=== PATIENT | male | born 1955 | race African-American/Black ===

== ENCOUNTER 2016-10-26 14:40 | Emergency (ER) | payer OTHER ==
--- NOTE | ~2016-10-26 | CR72 ---
[facility] A Service of [facility] [place] & [facility] RADIOLOGY TEXT RESULTS PATIENT: JESSICA YOUSSEF LOCATION: [facility] : 59 UNIT #: [id number] AGE: [address]: David Ramirez MD SEX: M ORDER DR: [id number] [facility] [address] [place], [place] [address] [id number] MR#: [id number] #: [id number] NAME: JESSICA YOUSSEF : 1955 SEX: M STUDY DATE/TIME: 10/26/2016 16:17 UNIT: [facility] ROOM: STUDY DESCRIPTION: CR Chest Single View Portable Attending Physician: David Ramirez M.D. Ordering Physician: David Ramirez M.D. Primary Care Physician: Patrick Lopez M.D. MEDICAL IMAGING REPORT This report is preliminary unless electronic signature is present EXAM Portable chest 1 view COMPARISON STUDIES None 10/26/2016 HISTORY Weakness and short of air today. FINDINGS There is pulmonary hyperexpansion and mild cardiomegaly but otherwise no acute disease. There is no consolidation or effusion or pneumothorax. No acute bony abnormality. Dictated by... Ian Nunez M.D. THIS IS AN ELECTRONICALLY VERIFIED REPORT Ian Nunez M.D. at 10/27/2016 4:10 PM REGGIE/craig TD: 10/26/2016 18:52 JOB #: [id number] MEDICAL IMAGING REPORT Page 1 of 1 COPY
--- NOTE | ~2016-10-26 | EKG ---
PATIENT: JESSICA YOUSSEF UNIT #: [id number] Ventricular Rate: 76 BPM Atrial Rate: 76 BPM P-R Interval: 130 ms QRS Duration: 80 ms Q-T Interval: 406 ms QTC Calculation(Bezet): 456 ms P Baltic: 58 degrees Calculated R Baltic: -25 degrees Calculated T Baltic: 40 degrees Diagnosis Line: Normal sinus rhythm Diagnosis Line: Normal ECG Diagnosis Line: No previous ECGs available Diagnosis Line: Confirmed by DEVIN PATTERSON MD ([id number]) on Diagnosis Line: 10/27/2016 9:04:14 AM INTERPRETING MD: LEONARDO JAUREGUI
[2016-10-26 16:39] LABS: BASOPHIL# 0.1 X10e3 (0-0.3); BASOPHIL% 1.3 % (0-2.5); EOSINOPHIL% 0.6 % (0.0-7.0); HEMATOCRIT 33.9 % (38.0-50.0); LYMPHOCYTE# 1.7 X10e3 (1.0-3.5); LYMPHOCYTE% 33.2 % (17.0-45.0); MEAN CELL VOLUME 93.6 FL (83-96); MEAN CORPUSCULAR HEMOGLOBIN 30.5 PG (28-34); MEAN CORPUSCULAR HGB CONC 32.6 g/dL (30-36); MEAN PLATELET VOLUME 6.9 FL (6.5-11.5); MONOCYTE# 0.4 X10e3 (0-1.0); MONOCYTE% 7.7 % (3.0-12.0); NEUTROPHIL# 2.9 X10e3 (1.5-7.1); NEUTROPHIL% 57.2 % (40-75); PLATELET COUNT 336 X10e3 (140-420); RED BLOOD COUNT 3.62 X10e (3.90-5.60); RED CELL DISTRIBUTION WIDTH 15.9 % (11.0-15.5); WHITE BLOOD COUNT 5.1 X10e3 (4.0-10.5)
[2016-10-26 16:43] LABS: DIFF IND NO
[2016-10-26 17:43] LABS: ALBUMIN SERUM 3.3 g/dL (3.5-5.0); BILIRUBIN, DIRECT 0.1 mg/dL (0.0-0.2); BILIRUBIN,INDIRECT 0.4 mg/dL (0.0-0.9); BILIRUBIN,TOTAL 0.5 mg/dL (0.2-2.0); BUN/CREATININE RATIO 12.72; CALCIUM SERUM 8.5 mg/dL (8.4-10.2); CREATININE SERUM 1.1 mg/dL (0.6-1.4); GLOM FILT RATE Estimated 84.7 mL/min (>60); POTASSIUM 4.6 mmol/L (3.5-5.1)
== END 2016-10-26 22:29 | disposition home or self-care (01) ==
LOC: CED 14:40
PROVIDERS: Emergency Medicine
DX: F10.129 Alcohol abuse with intoxication, unspecified (principal); K74.60 Unspecified cirrhosis of liver
CPT/HCPCS: 36415; 71010; 80048; 80076; 82550; 82947; 85025; 93005; 96360; 96361; 99284; G0480